=== PATIENT | female | born 1970 | race Caucasian/White ===

== ENCOUNTER 2023-05-08 12:26 | Emergency (ER) | payer OTHER ==
[~2023-05-08] VITALS: Ht 160 cm; Wt 52.2 kg
--- NOTE | 2023-05-08 13:00 | NUR ---
SEEN BY DR. WORLEY
[2023-05-08] MEDS ORDERED: TDAP [DIPH/PERTUSSIS/TET] 0.5 ML VIAL IM ONE ×2 (13:30→13:35)
--- NOTE | 2023-05-08 13:30 | NUR ---
CLEAN WOUND BY EMT DONE AT BE SIDE
--- NOTE | 2023-05-08 13:55 | NUR ---
TD SHUT GIVEN TO PT TOLORATED NO REACTION
[2023-05-08] MEDS ORDERED: IBUP-1955 PO (14:00)
--- NOTE | 2023-05-08 14:08 | NUR ---
Patient discharged to home in stable condition. Written and verbal after care instructions given. Patient verbalizes understanding of instruction.
[2023-05-08 14:14] VITALS: BP 128/72; TEMP 97; O2SAT 93
== END 2023-05-08 14:15 | disposition home or self-care (01) ==
LOC: ER 12:32
DX: S01.112A Laceration without foreign body of left eyelid and periocular area, initial encounter (principal); W25.XXXA Contact with sharp glass, initial encounter; Y93.89 Activity, other specified; Y92.89 Other specified places as the place of occurrence of the external cause; Y99.8 Other external cause status
CPT/HCPCS: 90715